=== PATIENT | male | born 1960 | race Caucasian/White ===

== ENCOUNTER 2022-05-07 16:02 | Emergency (ER) | payer OTHER ==
[2022-05-07] MEDS ORDERED: NAPROXEN500 MG PO (19:08)
[2022-05-07] MEDS ORDERED: BACLOFEN 10MG T10 MG PO (19:08)
== END 2022-05-07 19:20 | disposition home or self-care (01) ==
LOC: FER 16:02
DX: S60.811A Abrasion of right wrist, initial encounter (principal); S60.821A Blister (nonthermal) of right wrist, initial encounter; I10 Essential (primary) hypertension; Z88.6 Allergy status to analgesic agent; V48.5XXA Car driver injured in noncollision transport accident in traffic accident, initial encounter; Z28.310 Unvaccinated for COVID-19
CPT/HCPCS: 73110